=== PATIENT | male | born 1970 | race Caucasian/White ===

== ENCOUNTER 2016-04-05 10:26 | Emergency (ER) | payer BC ==
[2016-04-05 10:58] VITALS: BP 139/92
--- NOTE | 2016-04-05 13:09 | UC ---
Jarret Longoria Karl, scribed for Ale Cabrera DO on 04/05/16 at 1136 . Upper Extremity HPI - HPI Summary HPI Summary: Pt is a 46 y/o male that presents to [facility] c/o constant right hand pain in between his 2nd and 3rd fingers that radiates into his hand for the past 3 weeks. Pt stated that the pain at the moment is a dull throb rating it at a 2/ 10 but reported that it worsens in intensity by the end of the day after performing ADL such as typing, unlocking doors, and writing. Pt stated that he thinks he might have jammed his finger while playing football with his kids but is unsure of exactly how he injured it. Pt stated that isabel taping or icing his fingers and ibuprofen/Tylenol alleviated the pain. Pt also reported an itchy , erythematous rash on his RLE on the tibia that he stated is alleviated when treating it with fungal cream or lotion. - History of Current Complaint Chief Complaint: UCUpperExtremity Stated Complaint: RT HAND INJ/RINGWORM Time Seen by Provider: 04/05/16 11:04 Hx Obtained From: Patient ?: No Onset/Duration: Gradual Onset, Lasting Weeks - 3, Still Present Severity Initially: Mild Severity Currently: Mild Pain Intensity: 2 - Right Hand Pain Pain Scale Used: 0-10 Numeric Location Of Pain: Is Discrete @ - right hand between 2nd and 3rd fingers Character: Aching, Throbbing Aggravating Factor(s): Movement Alleviating Factor(s): Ice, OTC Meds - ibuprofen and tylenol, Other: - isabel taping giners together Associated Signs And Symptoms: Positive: Swelling - minimal. Negative: Redness , Bruising, Fever, Weakness, Numbness/Tingling Related History: Dominant Hand Right - Allergies/Home Medications Allergies/Adverse Reactions: Allergies Allergy/AdvReac Type Severity Reaction Status Date / Time No Known Allergies Allergy Verified 12/07/14 10:04 Home Medications: Home Medications Vitamin B Complex TAB* [Complex B-100*] 04/05/16 [History] PMH/Surg Hx/FS Hx/Imm Hx Previously Healthy: Yes - Surgical History Surgical History: Yes Surgery Procedure, Year, and Place: vasectomy; wisdom teeth - Family History Known Family History: Positive: Cardiac Disease - [place] - father in his 40's Negative: Hypertension, Diabetes - Social History Occupation: Employed Full-time Lives: With Family Alcohol Use: Occasionally Alcohol Amount: 2-3 DRINKS/DAY Substance Use Type: None Smoking Status (MU): Former Smoker Amount Used/How Often: 2-3 cigs daily When Did the Patient Quit Smoking/Using Tobacco: PAST YR Review of Systems Constitutional: Negative Skin: Rash - right tibia Eyes: Negative ENT: Negative Respiratory: Negative Cardiovascular: Negative Gastrointestinal: Negative Genitourinary: Negative Motor: Negative Neurovascular: Negative Musculoskeletal: Arthralgia - right hand in between 2nd and 3rd fingers Neurological: Negative Psychological: Negative All Other Systems Reviewed And Are Negative: Yes Physical Exam Triage Information Reviewed: Yes Appearance: Well-Appearing, No Pain Distress, Well-Nourished Vital Signs: Initial Vital Signs Temp 98.1 F 04/05/16 10:53 Pulse 72 04/05/16 10:53 Resp 16 04/05/16 10:53 BP 139/92 04/05/16 10:53 Pulse Ox 99 04/05/16 10:53 Vital Signs Reviewed: Yes Eyes: Positive: Conjunctiva Clear. Negative: Discharge ENT: Positive: Hearing grossly normal. Negative: Muffled/hoarse voice Neck exam: Normal Neck: Positive: Supple Respiratory: Positive: Lungs clear, Normal breath sounds, No respiratory distress, No accessory muscle use Cardiovascular: Positive: RRR, No Murmur Musculoskeletal Exam: Other - tender over deep transverse metacarpal ligament between 2nd and 3rd MCP's, no bony tenderness, minimal swelling, no redness, no calor Neurological: Positive: Alert, Muscle Tone Normal Psychological Exam: Normal Psychological: Positive: Age Appropriate Behavior Skin: Positive: rashes - red, scaly, puritic rash on right quiroga approx 3-4cm in diameter, non-tender Upper Extremity Course/Dx - Differential Dx/Diagnosis Differential Diagnosis/HQI/PQRI: Contusion, Strain, Sprain Provider Diagnoses: hand sprain Discharge - Discharge Plan Condition: Stable Disposition: HOME Prescriptions: Naproxen [Naproxen 500 MG TABS] 500 mg PO BID #10 tab Patient Education Materials: Hand Sprain (ED), Splint Care (ED) Forms: *Work Release Referrals: Paulina Stiles MD [Medical Doctor] - (FOLLOW UP IN 3-5 DAYS) Wood,Maren A, CLOSET ORGANIZER [Primary Care Provider] - (fOLLOW UP IN 3-5 DAYS) Additional Instructions: ANTI-INFLAMMATORY MEDICATION:WE RECOMMEND [facility] You have received a prescription for an antiinflammatory agent. This is an excellent, safe drug for pain control. In addition, it has potent antiinflammatory effects which are beneficial, especially in the treatment of injuries, arthritis, or tendonitis. It's best to take this medicine with food. Persons with ulcer disease or allergy to aspirin should notify their physician of this before taking this drug. Take the medication exactly as prescribed. Don't take additional doses unless instructed to do so by your doctor. If you develop wheezing, shortness of breath, hives, faintness, stomach pain, vomiting, or dark black stools, return for re-evaluation at once. PHYSICAL THERAPY REFERRAL: You have been prescribed physical therapy. Treatments may include stretching, exercise, application of heat or cold, and other modalities. After an injury, PT can reduce swelling and pain. In recovery, PT is used to restore mobility and strength. Your specific treatment goals are: Reduction of Swelling (EGS, US, ice as needed) __X___ Pain Reduction (EGS, US, ice as needed) TENS Pack Fitting and Instruction Wound Hydrotherapy __X___ Preservation of Mobility Adventism of Mobility Strength Adventism __X___ Work or Sports Hardening This instruction sheet also serves as your PHYSICAL THERAPY REFERRAL! Please take it with you to the therapist, so he/she will be aware of your diagnosis and treatment plan. You may see the physical therapist of your choice for these treatments, but may wish to check with your insurance to be sure the provider you select is covered. It's important to see the doctor to whom you have been referred for follow up. The documentation as recorded by the Jarret mendez Karl accurately reflects the service I personally performed and the decisions made by , Ale Cabrera DO.
== END 2016-04-05 12:22 | disposition home or self-care (01) ==
LOC: UCEAST 10:26
DX: S63.91XA Sprain of unspecified part of right wrist and hand, initial encounter (principal); X58.XXXA Exposure to other specified factors, initial encounter; Y93.9 Activity, unspecified; Y92.9 Unspecified place or not applicable; Z87.891 Personal history of nicotine dependence
CPT/HCPCS: 99213; G0463

== ENCOUNTER 2017-10-18 12:46 | Emergency (ER) | payer SELFPAY ==
[2017-10-18 12:58] VITALS: BP 120/85
--- NOTE | 2017-10-18 13:38 | UC ---
Hand/Wrist HPI - HPI Summary HPI Summary: Jammed left thumb on a table while at work. Pain radiates up arm and also has neck pain. - History Of Current Complaint Chief Complaint: UCUpperExtremity Stated Complaint: NECK/L THUMB PAIN Time Seen by Provider: 10/18/17 13:26 Hx Obtained From: Patient Onset/Duration: Sudden Onset, Lasting Days - 1 DAY, Still Present Severity Initially: Moderate Severity Currently: Moderate Pain Intensity: 5 Pain Scale Used: 0-10 Numeric Character Of Pain: Aching Aggravating Factor(s): Movement Alleviating Factor(s): Rest Associated Signs And Symptoms: Negative: Swelling, Bruising, Numbness/Tingling Related History: Dominant Hand Right - Allergies/Home Medications Allergies/Adverse Reactions: Allergies Allergy/AdvReac Type Severity Reaction Status Date / Time No Known Allergies Allergy Verified 10/18/17 12:58 PMH/Surg Hx/FS Hx/Imm Hx Previously Healthy: Yes - Surgical History Surgical History: Yes Surgery Procedure, Year, and Place: vasectomy; wisdom teeth - Family History Known Family History: Positive: Cardiac Disease - [place] - father in his 40's Negative: Hypertension, Diabetes - Social History Alcohol Use: Occasionally Alcohol Amount: 2-3 DRINKS/DAY Substance Use Type: None Smoking Status (MU): Former Smoker Amount Used/How Often: 2-3 cigs daily When Did the Patient Quit Smoking/Using Tobacco: PAST YR Review of Systems Constitutional: Negative Skin: Negative Respiratory: Negative Cardiovascular: Negative Gastrointestinal: Negative Musculoskeletal: Arthralgia, Decreased ROM, Myalgia All Other Systems Reviewed And Are Negative: Yes Physical Exam Triage Information Reviewed: Yes Appearance: Well-Appearing, No Pain Distress, Well-Nourished Vital Signs: Initial Vital Signs Temp 98.2 F 10/18/17 12:49 Pulse 84 10/18/17 12:49 Resp 18 10/18/17 12:49 BP 120/85 10/18/17 12:49 Pulse Ox 97 10/18/17 12:49 Vital Signs Reviewed: Yes Eyes: Positive: Conjunctiva Clear ENT: Positive: Hearing grossly normal Neck: Positive: Supple Respiratory: Positive: No respiratory distress, No accessory muscle use Cardiovascular: Positive: Pulses Normal Abdomen Description: Positive: Soft Musculoskeletal: Positive: No Edema, ROM Limited @ - LEFT THUMB, Other: - TTP LEFT 1ST METACARPAL. TTP LEFT TRAPEZIUS Neurological: Positive: Alert Psychological: Positive: Age Appropriate Behavior Skin: Negative: rashes Diagnostics - Radiology LEFT THUMB XRAY Xray Interpretation: No Acute Changes Radiology Interpretation Completed By: Radiologist Hand/Wrist Course/Dx - Differential Dx/Diagnosis Provider Diagnoses: 1. LEFT THUMB SPRAIN. 2. LEFT TRAPEZIUS STRAIN Discharge - Sign-Out/Discharge Documenting (check all that apply): Patient Departure - Discharge Plan Condition: Stable Disposition: HOME Prescriptions: Cyclobenzaprine TAB* [Flexeril TAB*] 10 mg PO BID PRN #30 tab PRN Reason: Pain Ibuprofen TAB* [Motrin TAB* 800 MG] 800 mg PO Q8H PRN #30 tab PRN Reason: Pain Patient Education Materials: Muscle Strain (ED), Finger Sprain (ED) Forms: *Work Release Referrals: No Primary Care Phys,NOPCP [Primary Care Provider] - Additional Instructions: XRAY TODAY UNREMARKABLE. THUMB SPICA FOR COMFORT AND PROTECTION. IBUPROFEN NEEDED. MUSCLE RELAXER TO HELP WITH YOUR MUSCLE STRAIN. CALL THE NUMBER BELOW FOR ASSISTANCE IN ESTABLISHING WITH A PCP An additional resource available to assist in finding the appropriate physician for your health care needs is the [facility] (Kathleen Simmons). You may contact them by calling [phone]. - Billing Disposition and Condition Condition: STABLE Disposition: Home
--- NOTE | 2017-10-18 13:57 | RAD ---
Indication: Left thumb pain. 3 views of the left thumb demonstrates no fracture. Degenerative changes of the first carpal metacarpal joint is noted. No fracture is identified. IMPRESSION: Degenerative changes of the first carpal metacarpal joint without fracture.
== END 2017-10-18 14:19 | disposition home or self-care (01) ==
LOC: UCEAST 12:46
DX: S63.602A Unspecified sprain of left thumb, initial encounter (principal); S43.492A Other sprain of left shoulder joint, initial encounter; Z87.891 Personal history of nicotine dependence; W23.0XXA Caught, crushed, jammed, or pinched between moving objects, initial encounter; Y92.9 Unspecified place or not applicable; Y99.0 Civilian activity done for income or pay
CPT/HCPCS: 99213; G0463

== ENCOUNTER 2019-05-25 19:26 | Emergency (ER) | payer BC ==
--- OUTSIDE RECORDS SUMMARY | 2019-05-25 19:33 | XMS REPORT | Summary of Care ---
:1970 Author Organization [facility] Address [address] [address] Care Team Providers Name Role Phone Annette Sanchez Primary Care Provider Reason for Referral Refer to Department Only (Routine) Status Reason Specialty Diagnoses / Referred By Referred To Procedures Contact Contact Pending Review Physical Therapy Diagnoses Chronic right shoulder pain Natan Sanchez NP Orthopaedics - [address] [place] [address] [place] [address] [address] Phone: [place], [place] [phone] Fax: Reason for Visit Reason Comments Establish Care R shoulder and elbow pain x2 months no known injury Encounter Details Date Type Department Care Team Description 05/17/2019 Office Visit [place] Daniel Annette, Chronic right shoulder pain (Primary Dx); 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 Oral Tab diclofenac 4 g by Topical 1 Tube 3 05/17/2019 Active (VOLTAREN) 1 % route FOUR Transdermal TIMES DAILY. GelIndications: Chronic right shoulder pain mometasone [place] 1 [place] 1 Bottle 5 05/17/2019 Active (NASONEX) 50 in nose MCG/ACT Nasal DIRECTED. 2 SuspensionIndicat sprays in each ions: Allergic nostril once rhinitis, daily until unspecified symptoms seasonality, resolve unspecified trigger mometasone [place] 1 [place] 1 Bottle 0 06/24/2018 Discontinued (NASONEX) 50 in nose 0 (Reorder) MCG/ACT Nasal DIRECTED. 2 SuspensionIndicat sprays in each ions: Viral nostril once sinusitis daily until symptoms resolve mometasone [place] 1 [place] 1 Bottle 0 05/17/2019 Discontinued (NASONEX) 50 in nose 0 (Other) MCG/ACT Nasal DIRECTED. 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 Alcohol Habits Answer Date Recorded How often do you have a drink containing 4 or more times a week 05/17/2019 alcohol? How many drinks containing alcohol do you have 1 or 2 05/17/2019 on a typical day when you are drinking? How often do you have six or more drinks on one Not asked occasion? Social Isolation Answer Date Recorded In a typical week, how many times do you talk on the phone Not asked with family, friends, or neighbors? How often do you get together with friends or relatives? Not asked How often do you attend buddhist or adventism services? Not asked Do you belong to any clubs or organizations such as buddhist Not asked groups, unions, fraternal or athletic groups, or school groups? How often do you attend meetings of the clubs or Not asked organizations you belong to? Are you now , , , , never 05/17/2019 or living with a partner? Intimate Partner Violence Answer Date Recorded Within the last year, have you been afraid of your partner or No 05/17/2019 ex-partner? Within the last year, have you been humiliated or emotionally No 05/17/2019 abused in other ways by your partner or ex-partner? Within the last year, have you been kicked, hit, slapped, or No 05/17/2019 otherwise physically hurt by your partner or ex-partner? Within the last year, have you been raped or forced to have any No 05/17/2019 kind of sexual activity by your partner or ex-partner? Sex Assigned at Date Recorded Not on file documented as of this encounter Last Filed Vital Signs Vital Sign Reading Time Taken Comments Blood Pressure 126/74 05/17/2019 9:31 AM EST Pulse 73 05/17/2019 9:31 AM EST Temperature 37.1 05/17/2019 9:31 AM EST C (98.8 F) Respiratory Rate - - Oxygen Saturation 97% 05/17/2019 9:31 AM EST Inhaled Oxygen Concentration - - Weight 85.7 kg (189 lb) 05/17/2019 9:31 AM EST Height 167.6 cm (5' 6") 05/17/2019 9:31 AM EST Body Mass Index 30.51 05/17/2019 9:31 AM EST documented in this encounter Patient Instructions Patient InstructionsNoAnnette stewart NP - 05/17/2019 9:40 AM ESTDiclofenac cream - apply to affected area 4 times daily as needed for pain. Schedule physical therapy - referral is in. Refill sent of the nasonex. Follow up as needed. It was a pleasure to meet you today! documented in this encounter Progress Notes Annette Sanchez NP - 05/17/2019 9:40 AM EST PATIENT: Justin Fernando : 1970 DATE OF SERVICE: 05/17/2019 Subjective SUBJECTIVE: Justin Fernando is a 49-y.o. male here to establish care. Prior PCP Dr. Alva. Current Concerns: Right shoulder and right elbow. 2 months ago his dog pulled on his arm and injured his elbow. Keeps reinjuring it - he was out of work for a month after vasectomy reversal and his shoulder was aching. The other day he slipped on the ice and caught himself with the right arm causing worsening pain. Somedays will hurt all day. Not bothering him currently but still painful to lift arm above his head. Chronic Conditions: 1) Hemachromatosis: Followed by GI Betty Dueñas NP yearly. Therapeutic phlebotomy 2-3 x peryear, with standing orders in place. Last phlebotomy was about 6 weeks ago. Lab Results Component Value Date HCT 47.4 09/27/2018 HGB 15.7 09/27/2018 Lab Results Component Value Date FERRITIN 45.1 09/27/2018 Specialists: *GI: Betty Dueñas NP - for hemachromatosis and history of Hep C infection. Yearly. Last OVJuly 2019. Health Maintenance: PSA (40, 50+): no family history. Abd U/S for AAA (men 65-75 w/ smoking hx; once): not yet indicated LDCT (55-80; 30 pack year hx in last 15 yrs; yearly): not yet indicated. Past Medical History: Diagnosis Date ? Fatty liver ? Hemochromatosis HOMOZYGOUS FOR THE C282Y MUTATION ? Hepatitis C virus infection without hepatic coma ? History of kidney stones Family History Problem Relation Age of Onset ? Cancer Mother 55 throat. ( smoker) ? Heart Sister 43 SC ? No Known Problems Brother ? No Known Problems Brother ? Asthma Brother ? Anemia Brother iron deficiency ? No Known Problems Brother ? Obesity Sister ? Heart Son Congenital heart defect as baby, resolved. ? No Known Problems Son ? Anesth Problems No family history ? Arthritis No family history ? Clotting Disorder No family history ? Diabetes No family history ? Heart Disease No family history ? Hypertension No family history ? Kidney Disease No family history ? Thyroid Disease No family history Current Outpatient Medications Medication Sig ? diclofenac (VOLTAREN) 1 % Transdermal Gel 4 g by Topical route FOUR TIMES DAILY. ? loratadine (CLARITIN) 10 MG Oral Tab Take 10 mg by mouth DAILY. ? mometasone (NASONEX) 50 MCG/ACT Nasal Suspension [place] 1 [place] in nose DIRECTED. 2 spraysin each nostril once daily until symptoms resolve No current facility-administered medications for this visit. No Known Allergies Social History Socioeconomic History ? Marital status: Spouse name: Not on file ? Number of children: Not on file ? Years of education: Not on file ? Highest education level: Not on file Occupational History ? Not on file Social Needs ? Financial resource strain: Not on file ? Food insecurity Worry: Not on file Inability: Not on file ? Transportation needs Medical: Not on file Non-medical: Not on file Tobacco Use ? Smoking status: Former Smoker Packs/day: 1.00 Years: 12.00 Pack years: 12.00 Types: Cigarettes Last attempt to quit: 05/17/2007 Years since quittin.0 ? Smokeless tobacco: Never Used Substance and Sexual Activity ? Alcohol use: Yes Frequency: 4 or more times a week Drinks per session: 1 or 2 Comment: 1-3 per day. ? Drug use: No ? Sexual activity: Yes Partners: Female Comment: monogomous Lifestyle ? Physical activity Days per week: Not on file Minutes per session: Not on file ? Stress: Not on file Relationships ? Social connections Talks on phone: Not on file Gets together: Not on file Attends adventism service: Not on file Active member of club or organization: Not on file Attends meetings of clubs or organizations: Not on file Relationship status: ? Intimate partner violence Fear of current or ex partner: No Emotionally abused: No Physically abused: No Forced sexual activity: No Other Topics Concern ? Back Care Not Asked ? Bike Helmet Not Asked ? Blood Transfusions Not Asked ? Caffeine Concern Not Asked ? Exercise Not Asked ? Hobby Hazards Not Asked ? International Travel Not Asked ? Service Not Asked ? Occupational Exposure Not Asked ? Seat Belt Not Asked ? Self-Exams Not Asked ? Sleep Concern Not Asked ? Special Diet Not Asked ? Stress Concern Not Asked ? 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 Cardiovascular: Negative for chest pain and palpitations. Musculoskeletal: Positive for falls (slip on ice) and joint pain. Negative for back pain, myalgias and neck pain. Neurological: Positive for tingling (when laying on right arm at night). Negative for sensory changeand weakness. Objective OBJECTIVE: BP 126/74 (BP Location: Left arm, Patient Position: Sitting) | Pulse 73 | Temp 98.8 F (37.1 C) (Tympanic) | Ht 5' 6" (1.676 m) | Wt 189 lb ( 85.7 kg) | SpO2 97% | BMI 30.51 kg/m Physical Exam Vitals signs and nursing note reviewed. Constitutional: General: He is not in acute distress. Appearance: Normal appearance. He is well-developed. Cardiovascular: Rate and Rhythm: Normal rate and regular rhythm. Heart sounds: Normal heart sounds. No murmur. No friction rub. No gallop. Pulmonary: Effort: Pulmonary effort is normal. No respiratory distress. Breath sounds: Normal breath sounds. Musculoskeletal: Right shoulder: He exhibits decreased range of motion (d/t pain). He exhibits no tenderness, no bony tenderness, no swelling, no effusion, no crepitus, no deformity, no laceration, no pain, no spasm, normal pulse and normal strength. Left shoulder: Normal. Right elbow: Normal. Cervical back: Normal. Thoracic back: Normal. Lumbar back: Normal. Neurological: Mental Status: He is alert. Psychiatric: Mood and Affect: Mood and affect normal. Speech: Speech normal. Behavior: Behavior normal. Behavior is cooperative. ASSESSMENT: ICD-9-CM ICD-10-CM 1. Chronic right shoulder pain 719.41 M25.511 diclofenac (VOLTAREN) 1 % Transdermal Gel 338.29 G89.29 REFER TO PHYSICAL THERAPY / REHAB 2. Allergic rhinitis, unspecified seasonality, unspecified trigger 477.9 J30.9 mometasone (NASONEX)50 MCG/ACT Nasal Suspension DISCONTINUED: mometasone (NASONEX) 50 MCG/ACT Nasal Suspension Plan PLAN: 1. Allergic rhinitis, unspecified seasonality, unspecified trigger Refill sent - mometasone (NASONEX) 50 MCG/ACT Nasal Suspension; [place] 1 [place] in nose DIRECTED. 2 sprays in each nostril once daily until symptoms resolve Dispense: 1 Bottle; Refill: 5 2. Chronic right shoulder pain -diclofenac prn -physical therapy -follow up prn. - diclofenac (VOLTAREN) 1 % Transdermal Gel; 4 g by Topical route FOUR TIMES DAILY. Dispense: 1 Tube; Refill: 3 - REFER TO PHYSICAL THERAPY / REHAB; Standing Author: Annette Sanchez NP 05/17/2019 11:42 documented in this encounter Plan of Treatment Date Type Specialty Care Team Description 06/05/2019 Office Visit Physical Therapy Irina Tiwari, PT [address] [place] [address] [phone] 08/30/2019 Office Visit Gastroenterology Betty Dueñas NP [address] [address] [phone] Name Type Priority Associated Diagnoses Order Schedule REFER TO PHYSICAL Referral Routine Chronic right shoulder 99 Occurrences starting THERAPY / REHAB pain 05/17/2019 until 05/17/2020 Health Maintenance Due Date Last Done Comments INFLUENZA VACCINE (#1) 2018 DIABETES SCREENING 06/22/2019 06/21/2018, 04/05/2018, 11/02/2017, Additional history exists DEPRESSION SCREENING 05/17/2020 05/17/2019 LIPID DISORDER SCREENING 09/30/2022 09/30/2017 DTaP/Tdap/Td Vaccines (2 - 09/16/2027 09/15/2017 Tdap) HIV SCREENING Completed 11/02/2017 HEPATITIS A IMMUNIZATION Aged Out No longer eligible SERIES based on patient's age to complete this topic HPV IMMUNIZATION SERIES Aged Out No longer eligible based on patient's age to complete this topic MENINGOCOCCAL VACCINE IMM Aged Out No longer eligible based on patient's age to complete this topic PNEUMOCOCCAL 0-64 YRS Aged Out No longer eligible based on patient's age to complete this topic documented as of this encounter Results Not on filedocumented in this encounter Visit Diagnoses Diagnosis Allergic rhinitis, unspecified seasonality, unspecified trigger Chronic right shoulder pain Pain in joint, shoulder region documented in this encounter Insurance Payer Benefit Plan / Subscriber ID Effective Dates Phone Address Type Group EDGARD CATHERINE [id number] 2014-Present Edgard SARABIA PPO documented as of this encounter
[2019-05-25 19:36] VITALS: BP 136/84
[2019-05-25] MEDS ORDERED: Tetan/Diph/Pertus SYR(Tdap)* 0.5 ML SYR(BOOSTRIX) use SYR contains LATEX IM ONE (19:36)
--- NOTE | 2019-05-25 19:45 | UC ---
Laceration HPI - HPI Summary HPI Summary: 49 yo male presents with LEFT thumb laceration. He tells me that just [employer] he was using his pocket knife to help carve a boat with his son and the knife slipped and punctured his left thumb. Bandaged the area and came to . Unsure date of last tetanus shot. He is right handed - History Of Current Complaint Chief Complaint: UCLaceration Stated Complaint: THUMB LAC Time Seen by Provider: 05/25/19 19:41 Hx Obtained From: Patient Laceration Location: Finger Mechanism Of Injury: Sharp Trauma Onset/Duration: Sudden Onset Severity: Mild Pain Intensity: 4 Pain Scale Used: 0-10 Numeric - Allergies/Home Medications Allergies/Adverse Reactions: Allergies Allergy/AdvReac Type Severity Reaction Status Date / Time environmental Allergy Congestion Uncoded 05/25/19 19:36 Home Medications: Home Medications Cromolyn Sodium [Nasal Allergy [place]] 1 spray INH ONCE PRN 05/25/19 [History Confirmed 05/25/19] Loratadine [Alavert] 1 tab PO DAILY PRN 05/25/19 [History Confirmed 05/25/19] PMH/Surg Hx/FS Hx/Imm Hx - Additional Past Medical History Additional PMH: Allergies - Surgical History Surgical History: Yes Surgery Procedure, Year, and Place: vasectomy; wisdom teeth, vasectomy reversal - Family History Known Family History: Positive: Cardiac Disease - [place] - father in his 40's Negative: Hypertension, Diabetes - Social History Lives: With Family Alcohol Use: Occasionally Alcohol Amount: 2-3 DRINKS/week Substance Use Type: None Smoking Status (MU): Former Smoker Amount Used/How Often: 2-3 cigs daily When Did the Patient Quit Smoking/Using Tobacco: PAST YR Review of Systems All Other Systems Reviewed And Are Negative: No Constitutional: Positive: Negative Skin: Positive: Other - Left thumb laceration Respiratory: Positive: Negative Cardiovascular: Positive: Negative Musculoskeletal: Positive: Negative Neurological/Mental Status: Positive: Negative Psychological: Positive: Negative Physical Exam - Summary Physical Exam Summary: GENERAL: NAD. WDWN. No pain distress. SKIN: LEFT THUMB: Distal aspect with 8mm vertical laceration through the distal tuft just into the distal nail. Clotted blood. Clean appearing. 1mm width. No gaping. No joint or bony involvement appreciated. CHEST: No accessory muscle use. Breathing comfortably and in no distress. CV: Pulses intact. Cap refill <2seconds MSK: FROM thumb. NEURO: Alert. PSYCH: Age appropriate behavior. Triage Information Reviewed: Yes Vital Signs: Initial Vital Signs Temp 97.1 F 05/25/19 19:31 Pulse 75 05/25/19 19:31 Resp 18 05/25/19 19:31 BP 136/84 05/25/19 19:31 Pulse Ox 98 05/25/19 19:31 Vital Signs Reviewed: Yes Laceration Repair - Laceration Repair 1 Description: Linear Laceration Size After Repair: Length (cm) - 0.8, Width (mm) - 1 Irrigation With Pressure Irrigation Device: Yes Closure Material: Skin Adhesive Closure Method: Single Layer Suture Of: Skin Laceration Course/Dx - Course/Dx Course Of Treatment: Wound cleansed with saline. Laceration well approximated at rest and does not gape open, therefore dermabond applied. Tubegauze applied. tetanus updated today. - Diagnosis Provider Diagnosis: Thumb laceration Discharge ED - Sign-Out/Discharge Documenting (check all that apply): Patient Departure All imaging exams completed and their final reports reviewed: No Studies - Discharge Plan Condition: Stable Disposition: HOME Patient Education Materials: Skin Adhesive Care (ED) Referrals: Ulices Alva DO [Primary Care Provider] - Additional Instructions: Change the dressing daily until well healed (likely 5-7 days). The glue should peel off naturally - similar to a sunburn peeling - in about 5 days Tetanus shot updated today - Billing Disposition and Condition Condition: STABLE Disposition: Home
== END 2019-05-25 20:15 | disposition home or self-care (01) ==
LOC: UCEAST 19:26
DX: S61.012A Laceration without foreign body of left thumb without damage to nail, initial encounter (principal); W26.0XXA Contact with knife, initial encounter; Y92.9 Unspecified place or not applicable; Z91.09 Other allergy status, other than to drugs and biological substances; Z87.891 Personal history of nicotine dependence
CPT/HCPCS: 12001; 90471; 90715; 99211; G0463